=== PATIENT | female | born 1995 | race Two or more races ===

== ENCOUNTER 2018-08-20 13:01 | Emergency (ER) | payer OTHER ==
[~2018-08-20] VITALS: Ht 175.3 cm; Wt 65.8 kg
[~2018-08-20 13:01] MED LIST: BENADRYL ITCH28.3 G1 TP; BENADRYL25 MG PO; CEFADROXIL500 MG PO; IBUPROFEN800 MG PO; LEVSIN/SL0.125 MG SL; PREDNISONE10 MG PO; ZITHROMAX TRI-500 MG PO; ZYRTEC10 M3 PO
== END 2018-08-20 16:30 | disposition home or self-care (01) ==
LOC: ER 13:01
DX: B34.9 Viral infection, unspecified (principal); R51 Headache